=== PATIENT | male | born 1960 | race Hispanic/Latino ===

== ENCOUNTER 2024-05-11 12:28 | Emergency (ER) | payer OTHER ==
[~2024-05-11] VITALS: Ht 157.5 cm; Wt 79.4 kg
[2024-05-11 12:47] VITALS: PULSE 58; RESP 16; TEMP 98.3
[2024-05-11 13:16] VITALS: BP 179/75; PULSE 58; RESP 16; TEMP 98.3; O2SAT 97
== END 2024-05-11 13:14 | disposition home or self-care (01) ==
LOC: ER 13:08
DX: I10 Essential (primary) hypertension (principal); E11.9 Type 2 diabetes mellitus without complications; E78.5 Hyperlipidemia, unspecified
CPT/HCPCS: 99282